=== PATIENT | female | born 1990 | race African-American/Black ===

== ENCOUNTER 2024-01-20 00:20 | Emergency (ER) | payer OTHER ==
[~2024-01-20] VITALS: Ht 167.6 cm; Wt 77.1 kg
[2024-01-20] MEDS ORDERED: ACETAMINOPHEN ES 500 MG TABLET ONE (01:03)
[2024-01-20] MEDS: ACETAMINOPHEN ES 500 MG TABLET PO ONE (01:03)
[2024-01-20 02:35] VITALS: BP 115/71; TEMP 98.1; O2SAT 99
== END 2024-01-20 02:39 | disposition home or self-care (01) ==
LOC: ER 00:22
DX: S09.8XXA Other specified injuries of head, initial encounter (principal); S61.511A Laceration without foreign body of right wrist, initial encounter; M54.2 Cervicalgia; Z60.2 Problems related to living alone; X58.XXXA Exposure to other specified factors, initial encounter; Y93.89 Activity, other specified; Y92.090 Kitchen in other non-institutional residence as the place of occurrence of the external cause; Y99.8 Other external cause status
CPT/HCPCS: 70450-TC; 72125-TC